=== PATIENT | male | born 1945 | race Caucasian/White ===

== ENCOUNTER 2017-09-26 22:21 | Emergency (ER) | payer OTHER ==
[~2017-09-26] VITALS: Ht 172.7 cm; Wt 79.4 kg
[~2017-09-26 22:21] MED LIST: ASPIRIN EC81 M1; CIPRO250 M1 PO; FISH OIL 1,001000 MG; LISINOPRIL-HCT1 EAC2; PERCOCET 5-3251 EACH PO; PRAVACHOL40 MG; TAMSULOSIN HCL0.4 MG PO; VERAPAMIL ER240 M1; vit c; vit e
[2017-09-26 22:47] LABS: URINE BILIRUBIN NEGATIVE (Negative); URINE BLOOD 3+ (Negative); URINE CLARITY CLEAR; URINE COLOR YELLOW; URINE GLUCOSE-RANDOM NEGATIVE (Negative); URINE KETONES NEGATIVE (Negative); URINE LEUKOCYTES-REFLEX 1+ (Negative); URINE NITRITE-REFLEX NEGATIVE (Negative); URINE PROTEIN TRACE (Negative); URINE SPECIFIC GRAVITY >= 1.030 (1.005-1.030); URINE UROBILINOGEN 0.2 E.U./dl (0.2-1.0)
[2017-09-26 22:58] LABS: CRYSTALS None Seen /LPF (None Seen); MUCUS None Seen strn/LPF (None Seen); SQUAMOUS 0-3 Few /LPF (0-3)
[2017-09-26 22:59] LABS: URINE RBC >20 Many /HPF (0-2)
[2017-09-26 23:00] LABS: BACTERIA-REFLEX 1-9 Few /HPF (None Seen); CASTS None Seen /LPF (None Seen); URINE WBC-REFLEX 6-15 Few /HPF (0-5)
[2017-09-26] MEDS ORDERED: FLOMAX0.4 MG PO (23:55)
[2017-09-26] MEDS ORDERED: HYDROCODONE-AP1 EAC6 PO (23:55)
[2017-09-26] MEDS ORDERED: ZOFRAN ODT4 MG PO (23:55)
[2017-09-26] MEDS ORDERED: CIPROFLOXACIN500 M1 PO (23:57)
[2017-09-27 00:26] VITALS: BP 143/80
== END 2017-09-27 00:27 | disposition home or self-care (01) ==
LOC: M.ERS 22:21
PROVIDERS: Emergency Medicine
DX: N20.0 Calculus of kidney (principal); N39.0 Urinary tract infection, site not specified; Z88.0 Allergy status to penicillin

== ENCOUNTER 2021-06-15 08:15 | Emergency (ER) | payer MEDICARE ==
[~2021-06-15] VITALS: Ht 172.7 cm; Wt 77.1 kg
[~2021-06-15 08:15] MED LIST changes: +CIPROFLOXACIN500 M1 PO; +FLOMAX0.4 MG PO; +HYDROCODONE-AP1 EAC6 PO; +ZOFRAN ODT4 MG PO
[2021-06-15 09:05] VITALS: BP 134/61
== END 2021-06-15 09:08 | disposition short-term general hospital (02) ==
LOC: M.ERS 08:15
DX: S22.42XA Multiple fractures of ribs, left side, initial encounter for closed fracture (principal); S01.81XA Laceration without foreign body of other part of head, initial encounter; S00.93XA Contusion of unspecified part of head, initial encounter; J93.9 Pneumothorax, unspecified; Z88.0 Allergy status to penicillin; Z79.82 Long term (current) use of aspirin; Z79.899 Other long term (current) drug therapy; W14.XXXA Fall from tree, initial encounter; Y93.89 Activity, other specified; Y92.89 Other specified places as the place of occurrence of the external cause; Y99.8 Other external cause status